=== PATIENT | male | born 1950 | race Caucasian/White ===

== ENCOUNTER → 2017-03-21 | Outpatient (CLI) | payer OTHER ==
[~2017-03-21] MED LIST: ATOR10TA9 PO; BACL-19 PO; CARV12.52 PO; CHOL200024 PO; DOCU100T6 PO; INSU100I32 SQ; LIRA0.6P SQ; LISI40TA PO; METF500T4 PO; TERA5CAP3 PO; VERA240C2 PO; WARF2.5T73 PO; [UNRECOGNIZED DRUG - CODE] PO
== END | disposition home or self-care (01) ==
LOC: CARD 14:34
PROVIDERS: ATTEND Internal Medicine
DX: G47.33 Obstructive sleep apnea (adult) (pediatric) (principal)
CPT/HCPCS: 94060; 94620; 94726; 94729

== ENCOUNTER 2018-02-04 17:39 | Day surgery (SDC) | payer MEDICARE, OTHER ==
[~2018-02-04 17:39] MED LIST changes: +GLYB5TAB3 PO; +OXYC5CAP2 PO; +ST.300TA3 PO; -[UNRECOGNIZED DRUG - CODE] PO
[2018-02-04] MEDS ORDERED: FENTANYL PF 100 MCG/2ML ONE ×2 (20:20→21:30)
[2018-02-04] MEDS ORDERED: MIDAZOLAM 1 MG/ML, 2ML ONE (20:20)
[2018-02-04] MEDS ORDERED: CEFAZOLIN 1,000 MG ONE (20:34)
[2018-02-04] MEDS ORDERED: KETOROLAC 30 MG/1 ML ONE (20:34)
[2018-02-04] MEDS ORDERED: ONDANSETRON 2MG/ML, 2ML ONE (20:34)
[2018-02-04] MEDS ORDERED: PROPOFOL 10 MG/ML, 20ML ONE (20:34)
[2018-02-04] MEDS ORDERED: LABETALOL 5MG/ML 40ML VIAL ONE (20:34)
[2018-02-04] MEDS ORDERED: DEXAMETHASONE 4 MG/ML, 1ML ONE (20:34)
[2018-02-04] MEDS ORDERED: LIDOCAINE 1%, 20ML ONE (20:56)
[2018-02-04] MEDS ORDERED: LIDOCAINE 1%, 20ML INFIL ONE (20:58)
[2018-02-04] MEDS ORDERED: ACETAMINOPHEN 325 MG TABLET PO PRN (21:00)
[2018-02-04] MEDS ORDERED: morphine SULFATE 10 MG/ML, 1ML IV PRN (21:00)
[2018-02-04] MEDS ORDERED: MEPERIDINE/PF 25MG/0.5ML IVPush PRN (21:00)
[2018-02-04] MEDS ORDERED: hydrALAzine 20 MG/ML, 1ML IV PRN (21:00)
[2018-02-04] MEDS ORDERED: ONDANSETRON 2MG/ML, 2ML IVPush PRN (21:00)
[2018-02-04] MEDS ORDERED: PROMETHAZINE 12.5 MG SUPP PR PRN (21:00)
[2018-02-04] MEDS: OXYcodone 5 MG/5 ML ORAL.SOL UDC PO PRN ×2 (21:24→21:36)
[2018-02-04] MEDS: FENTANYL PF 100 MCG/2ML IV PRN ×2 (21:30→22:01)
[2018-02-04] MEDS ORDERED: OXYcodone 5 MG/5 ML ORAL.SOL UDC ONE (21:30)
[2018-02-04] MEDS ORDERED: hydrALAzine 20 MG/ML, 1ML ONE (21:43)
[2018-02-04] MEDS: LABETALOL 5MG/ML, 20ML IV PRN ×2 (21:45→21:56)
[2018-02-04] MEDS ORDERED: OXYC5TAB2 PO (22:52)
== END 2018-02-04 22:30 | disposition home or self-care (01) ==
LOC: OUT 17:39 → 4NOR 18:02 → MERGE 19:30 → OUT 22:30
PROVIDERS: ATTEND Orthopaedic Surgery
DX: T81.30XA Disruption of wound, unspecified, initial encounter (principal); Y83.8 Other surgical procedures as the cause of abnormal reaction of the patient, or of later complication, without mention of misadventure at the time of the procedure; Y92.89 Other specified places as the place of occurrence of the external cause
CPT/HCPCS: 13160; 93005; J0360; J0690; J1100; J1885; J2250; J2405; J2704; J3010; J3490

== ENCOUNTER → 2018-02-26 | Outpatient (CLI) | payer OTHER ==
[~2018-02-26] MED LIST changes: +OXYC5TAB2 PO
== END | disposition home or self-care (01) ==
LOC: WOUND 08:30
PROVIDERS: ATTEND Internal Medicine
DX: T87.89 Other complications of amputation stump (principal); E11.621 Type 2 diabetes mellitus with foot ulcer; L97.422 Non-pressure chronic ulcer of left heel and midfoot with fat layer exposed; I10 Essential (primary) hypertension; I25.10 Atherosclerotic heart disease of native coronary artery without angina pectoris; I48.91 Unspecified atrial fibrillation; E78.5 Hyperlipidemia, unspecified; E11.69 Type 2 diabetes mellitus with other specified complication; M86.172 Other acute osteomyelitis, left ankle and foot; M86.672 Other chronic osteomyelitis, left ankle and foot; J44.9 Chronic obstructive pulmonary disease, unspecified; E66.9 Obesity, unspecified; G47.33 Obstructive sleep apnea (adult) (pediatric); F11.20 Opioid dependence, uncomplicated; Z79.4 Long term (current) use of insulin; Z79.01 Long term (current) use of anticoagulants
CPT/HCPCS: 11042; G0463; WOU0463